=== PATIENT | female | born 1955 | race Two or more races ===

== ENCOUNTER 2025-06-24 15:48 | Emergency (ER) | payer OTHER ==
[~2025-06-24] VITALS: Ht 162.6 cm; Wt 68.0 kg
[2025-06-24] MEDS ORDERED: LIPITOR20 MG (16:04)
[2025-06-24] MEDS ORDERED: ZESTRIL5 MG (16:05)
[2025-06-24] MEDS ORDERED: KATERZIA1 MG/1 ML (16:05)
[2025-06-24] MEDS ORDERED: PROTONIX20 MG (16:05)
[2025-06-24] MEDS ORDERED: MONTELUKAST SODI4 M1 (16:06)
[2025-06-24] MEDS ORDERED: MULTI VITAMIN1 EACH (16:06)
[2025-06-24] MEDS ORDERED: DARZALEX FASPRO15 ML (16:06)
[2025-06-24] MEDS ORDERED: TETANUS & DIPHTHERIA TOX,ADULT 0.5 ML VIAL IM ONE (16:45)
[2025-06-24] MEDS ORDERED: ACETAMINOPHEN 500 MG GEL..CAP PO ONE (16:45)
== END 2025-06-24 18:48 ==
LOC: ER 15:49
DX: S01.81XA Laceration without foreign body of other part of head, initial encounter (principal); S50.02XA Contusion of left elbow, initial encounter; S30.0XXA Contusion of lower back and pelvis, initial encounter; W18.39XA Other fall on same level, initial encounter; Y93.89 Activity, other specified; Y92.59 Other trade areas as the place of occurrence of the external cause; Y99.9 Unspecified external cause status; I10 Essential (primary) hypertension; Z88.0 Allergy status to penicillin; Z85.89 Personal history of malignant neoplasm of other organs and systems; Z96.642 Presence of left artificial hip joint
CPT/HCPCS: 12001; 70450; 72100; 72125; 73080; 73521; 90471; 90714; 99284; J1670